=== PATIENT | female | born 1975 | race Caucasian/White ===

== ENCOUNTER → 2020-06-03 | Day surgery (SDC) | payer BC ==
[~2020-06-03] MED LIST: BUSPAR 10MG10 MG PO; CALCITRIOL0.5 MCG PO; CALCIUM CARBON500 MG PO; KEPPRA1000 MG PO; LASIX40 MG PO; LEVOTHYROXINE50 MCG PO; LISINOPRIL20 MG PO; LYRICA75 MG PO; NEXIUM40 MG PO; PROZAC20 MG PO; SYNTHROID175 MCG PO; SYNTHROID25 MCG PO; VITAMIN D325 MCG PO
== END | disposition home or self-care (01) ==
LOC: OR 07:22
DX: K29.70 Gastritis, unspecified, without bleeding (principal); K21.00 Gastro-esophageal reflux disease with esophagitis, without bleeding; K59.09 Other constipation; K21.9 Gastro-esophageal reflux disease without esophagitis; I10 Essential (primary) hypertension; F17.200 Nicotine dependence, unspecified, uncomplicated; E03.9 Hypothyroidism, unspecified; F41.9 Anxiety disorder, unspecified; F32.9 Major depressive disorder, single episode, unspecified; E66.01 Morbid (severe) obesity due to excess calories; Z79.890 Hormone replacement therapy; Z79.899 Other long term (current) drug therapy; Z88.0 Allergy status to penicillin; Z88.2 Allergy status to sulfonamides; Z68.36 Body mass index [BMI] 36.0-36.9, adult; Z01.812 Encounter for preprocedural laboratory examination; Z20.822 Contact with and (suspected) exposure to COVID-19
CPT/HCPCS: J2001; J2704; J7040; U0003

== ENCOUNTER → 2020-06-24 | Outpatient (CLI) | payer BC | LOC: LAB 15:43 | PROVIDERS: Internal Medicine | DX: E66.9 Obesity, unspecified (principal) | CPT/HCPCS: 80048; 84100; 84439; 84443 ==

== ENCOUNTER 2021-12-12 01:19 | Emergency (ER) | payer BC ==
[2021-12-12 01:55] LABS: HEMOGLOBIN 11.6 gm/dl (12.3-15.3); RED BLOOD COUNT 4.22 M/UL (4.00-5.10); WHITE BLOOD COUNT 14.9 K/UL (4.5-11.0)
[2021-12-12 02:25] LABS: BUN/CREATININE RATIO 21 (0-10)
[2021-12-12] MEDS ORDERED: MAGNESIUM OXID400 M1 PO (06:07)
[2021-12-12] MEDS ORDERED: OMNICEF 300 MG300 MG PO (06:07)
[2021-12-12] MEDS ORDERED: CALCIUM500 M1 PO (06:07)
[2021-12-12] MEDS ORDERED: HYDROXYZINE HCL25 MG PO (06:07)
[2021-12-12] MEDS ORDERED: K-TAB ER20 MEQ PO (06:07)
== END 2021-12-12 06:25 | disposition home or self-care (01) ==
LOC: ER1 01:19
PROVIDERS: Student in an Organized Health Care Education/Training Program
DX: N39.0 Urinary tract infection, site not specified (principal); E87.6 Hypokalemia; F41.9 Anxiety disorder, unspecified; I10 Essential (primary) hypertension; E89.0 Postprocedural hypothyroidism; F17.210 Nicotine dependence, cigarettes, uncomplicated; Z88.0 Allergy status to penicillin; Z88.2 Allergy status to sulfonamides
CPT/HCPCS: 0240U; 70450; 80053; 80307; 81001; 82550; 82553; 83605; 83690; 84439; 84443; 84484; 85025; 93005; 96361; 96374; 96376; 99285; J2310; J2405; Q0177; Q9967